=== PATIENT | female | born 1945 | race Caucasian/White ===

== ENCOUNTER → 2016-09-04 | Outpatient (CLI) | payer OTHER ==
[~2016-09-04] MED LIST: AMLO10TA2 PO; BENA20TA2 PO; CEFD300C2 PO; INSU100V8 SQ; METF850T2 PO; METR500T PO; REGADENOSON 0.4 MG/5 ML SYRINGE ONE
== END | disposition home or self-care (01) ==
LOC: CFH 08:04
PROVIDERS: ATTEND Physician Assistant Medical
DX: R06.02 Shortness of breath (principal); R07.9 Chest pain, unspecified
CPT/HCPCS: 78452; 93017; A9502; J2785

== ENCOUNTER 2016-09-20 06:14 | Day surgery (SDC) | payer OTHER ==
[2016-09-19 10:21] LABS: HEMOGLOBIN 13.4 g/dL (11.7-16.4)
[2016-09-19 10:33] LABS: ASPARTATE AMINO TRANSFERASE 18 U/L (15-37); BLOOD UREA NITROGEN 15 mg/dL (7-18)
[~2016-09-20] VITALS: Ht 144.8 cm; Wt 67.0 kg
[~2016-09-20 06:14] MED LIST changes: +ASPI-515 PO; +PRAV40TA2 PO; -REGADENOSON 0.4 MG/5 ML SYRINGE ONE
[2016-09-20] MEDS ORDERED: BUPIVACAINE/PF-EPI 0.25% 1:200K ONE (06:45)
[2016-09-20 07:00] VITALS: BP 147/82
[2016-09-20] MEDS ORDERED: LACTATED RINGERS 1,000 ML IV SCH (07:01)
[2016-09-20] MEDS ORDERED: FENTANYL PF 250 MCG/5ML ONE (07:22)
[2016-09-20] MEDS ORDERED: MIDAZOLAM 1 MG/ML, 2ML ONE (07:22)
[2016-09-20] MEDS ORDERED: NEOSTIGMINE 1 MG/ML, 10ML ONE (07:28)
[2016-09-20] MEDS ORDERED: DEXAMETHASONE 4 MG/ML, 5ML ONE (07:28)
[2016-09-20] MEDS ORDERED: CEFAZOLIN 1,000 MG ONE (07:28)
[2016-09-20] MEDS ORDERED: PROPOFOL 10 MG/ML, 20ML ONE (07:28)
[2016-09-20] MEDS ORDERED: SUCCINYLCHOLINE 20 MG/ML, 10ML ONE (07:28)
[2016-09-20] MEDS ORDERED: GLYCOPYRROLATE 0.2MG/1ML ONE (07:28)
[2016-09-20] MEDS ORDERED: PHENYLEPHRINE 10 MG/ML ONE (07:28)
[2016-09-20] MEDS ORDERED: ROCURONIUM 10 MG/ML ONE (07:28)
[2016-09-20] MEDS ORDERED: hydrALAzine 20 MG/ML, 1ML IV PRN (08:00)
[2016-09-20] MEDS ORDERED: ACETAMINOPHEN 325 MG TABLET PO PRN (08:00)
[2016-09-20] MEDS ORDERED: FENTANYL PF 100 MCG/2ML IV PRN (08:00)
[2016-09-20] MEDS ORDERED: ONDANSETRON 2MG/ML, 2ML IVPush PRN (08:00)
[2016-09-20] MEDS ORDERED: ALBUTEROL SULFATE 2.5 MG/3 ML NPPB PRN (08:00)
[2016-09-20] MEDS ORDERED: MEPERIDINE/PF 25MG/0.5ML IVPush PRN (08:00)
[2016-09-20] MEDS ORDERED: PROMETHAZINE 25 MG/ML, 1ML IV PRN (08:00)
[2016-09-20] MEDS ORDERED: LABETALOL 5MG/ML, 20ML IV PRN (08:00)
[2016-09-20] MEDS ORDERED: MIDAZOLAM 1 MG/ML, 2ML IV PRN (08:00)
[2016-09-20] MEDS ORDERED: HYDROmorphone 1 MG/ML, 1ML IV PRN (08:00)
[2016-09-20] MEDS ORDERED: OXYcodone 5 MG/5 ML ORAL.SOL UDC PO PRN (08:00)
== END 2016-09-20 10:20 ==
LOC: OUT 06:14
PROVIDERS: ATTEND Surgery
DX: C44.519 Basal cell carcinoma of skin of other part of trunk (principal); E11.9 Type 2 diabetes mellitus without complications; I10 Essential (primary) hypertension; E78.00 Pure hypercholesterolemia, unspecified
CPT/HCPCS: 11604; 12032; 36415; 80053; 82962; 85025; 85610; 88304; 93005; J0330; J0690; J1100; J2250; J2370; J2704; J2710; J3010; J7120; J3490